=== PATIENT | female | born 1950 | race Caucasian/White ===

== ENCOUNTER 2017-07-16 09:02 | Emergency (ER) | payer OTHER ==
[~2017-07-16] VITALS: Wt 81.8 kg
[~2017-07-16 09:02] MED LIST: ASPI-664 PO; ATOR80TA75 PO; INSU100C SC; INSU300I SQ; LEVO50TA74 PO; LISI40TA9 PO; MTF1000T PO
[2017-07-16] MEDS ORDERED: LIDOCAINE 1% (MDV) 20 ML INJ SC ONE (10:30)
[2017-07-16] MEDS ORDERED: IBUP-1542 PO (10:45)
--- NOTE | 2017-07-16 11:42 | ERD ---
ER Documentation Chief Complaint Chief Complaint r. arm abrasions s/p [facility] fall this am HPI 67-year-old female presented ED after slip and fall this morning. Patient stated that she was taking trash out, and slipped on a step. She braced her fall with her arm landing on the air conditioning unit. She sustained multiple abrasions and one laceration at the ulnar aspect of her right wrist. Denies hitting her head in the fall. Denies any other injuries. Patient's tetanus is up-to-date. Patient is right-hand dominant. She has history of coronary artery disease. ROS All systems reviewed and are negative except as per history of present illness. Medications Home Meds Active Scripts Ibuprofen* (Motrin*) 600 Mg Tab, 600 MG PO Q6H Y for PAIN AND OR ELEVATED TEMP, #30 TAB Prov:LUPE MCDANIEL ASL INTERPRETER 07/16/17 Reported Medications Insulin Lispro (Humalog) 100 U/Ml Cartridge, 12 UNITS SC TID, EA 03/07/16 Lisinopril* (Lisinopril*) 40 Mg Tablet, 40 MG PO DAILY, #30 TAB 03/07/16 Insulin Glargine,Hum.rec.anlog (Toujeo Solostar) 300 Unit/1 Ml Insuln.pen, 35 UNIT SQ QPM 03/07/16 Atorvastatin* (Atorvastatin*) 80 Mg Tablet, 80 MG PO QHS, #30 TAB 03/07/16 Metformin* (Glucophage*) 1,000 Mg Tablet, 1000 MG PO BID, #60 TAB 03/07/16 Levothyroxine Sodium* (Levothyroxine Sodium*) 50 Mcg Tablet, 50 MCG PO BEFORE BREAKFAST, #30 TAB 03/07/16 Aspirin* (Aspirin* EC) 81 Mg Tablet.dr, 81 MG PO DAILY, TAB 03/07/16 Allergies Allergies: Coded Allergies: No Known Allergy (Unverified , 03/07/16) PMhx/Soc History of Surgery: Yes (C/S X3/LAP ELIANA/BREAST REDUCTION/ECTOPIC ) Anesthesia Reaction: No Hx Neurological Disorder: No Hx Respiratory Disorders: No Hx Psychiatric Problems: No Hx Miscellaneous Medical Probl: No Hx Alcohol Use: No Hx Substance Use: No Hx Tobacco Use: No Physical Exam Vitals Vital Signs Date Time Temp Pulse Resp B/P Pulse Ox O2 Delivery O2 Flow Rate FiO2 07/16/17 09:17 97.9 89 20 209/88 98 Physical Exam General: Patient is well-developed. Awake, alert, and conversant, in no apparent distress Skin: Warm and dry Head: Normocephalic, atraumatic without palpable deformities Eyes: Pupils equal, round, and reactive to light. Extraocular movements intact. No periorbital ecchymosis or step-off Chest: No surface trauma. Nontender without crepitus or deformity. No palpable subcutaneous air. Lungs have good tidal volume, lungs clear to auscultate bilaterally Heart: Regular rate and rhythm. No murmur, rub, or gallop Extremities: Multiple abrasions on the right hand and right forearm. A moderately deep laceration at the ulnar aspect the right wrist, 70 over shape, 2.5 cm long. Full range of motion without limitation or pain. Good strength in all extremities. Sensation to light touch intact. All peripheral pulses are intact and equal Neuro: Alert and oriented 4, GCS 15, cranial nerves II through XII intact. Motor and sensory exam is nonfocal. Reflexes are symmetric Results 24 hrs Current Medications Medications (Trade) Dose Ordered Sig/[place] Route PRN Reason Start Time Stop Time Status Last Admin Dose Admin Lidocaine (Xylocaine 1% (Mdv) 20 ml) 20 ml ONCE ONCE SC 07/16/17 10:30 07/16/17 10:31 DC Procedures/MDM Procedure note: laceration repair Verbal consent was obtained for the laceration repair. The wound was copiously irrigated. Local anesthesia was provided using 1% lidocaine. After appropriate anesthesia, the area was explored under a bloodless field. Full range of motion of the joint above and below the injury was noted. No foreign body, deep structure or tendon involvement was noted. Closure was achieved with 4 interrupted sutures using 5-0 Ethilon. Good cosmetic and hemostatic results were obtained with the closure. The wound was then cleaned and a dressing was applied. Low suspicion for fractures, dislocation, or sprain. I doubt tendon, vascular or nerve injury. Patient is up-to-date on tetanus. Patient advised to follow-up in the ED in 2 days for wound check. Departure Diagnosis: Primary Impression: Laceration of arm Additional Impressions: Abrasion Fall Condition: Stable Patient Instructions: Abrasion, Laceration, Hand, Fall Prevention Additional Instructions: Return to this facility or to your PCP in 2 DAYS for a follow-up exam.Return sooner if your condition worsens. Follow up with your physician to remove the stitches:For Face wounds 5-7 days.For Elsewhere on the body 7-10 days. LUPE MCDANIEL NP Jul 16, 2017 11:42
== END 2017-07-16 11:15 | disposition home or self-care (01) ==
LOC: FTE 09:02
DX: S61.511A Laceration without foreign body of right wrist, initial encounter (principal); E11.9 Type 2 diabetes mellitus without complications; W10.9XXA Fall (on) (from) unspecified stairs and steps, initial encounter; Y92.9 Unspecified place or not applicable; Z79.4 Long term (current) use of insulin; Z79.82 Long term (current) use of aspirin; Z79.84 Long term (current) use of oral hypoglycemic drugs